=== PATIENT | male | born 1975 | race Caucasian/White ===

== ENCOUNTER 2021-08-26 14:51 | Emergency (ER) | payer OTHER, BC | END 2021-08-26 18:43 | disposition home or self-care (01) | LOC: ER1 14:51 | DX: S80.212A Abrasion, left knee, initial encounter (principal); V49.9XXA Car occupant (driver) (passenger) injured in unspecified traffic accident, initial encounter; Y92.410 Unspecified street and highway as the place of occurrence of the external cause | CPT/HCPCS: 71045; 73562; 99283 ==